=== PATIENT | female | born 1965 | race Caucasian/White ===

== ENCOUNTER 2016-03-20 03:52 | Emergency (ER) | payer OTHER ==
[~2016-03-20 03:52] MED LIST: AKWA TEARS15 ML BOTH EYES; ALBUTEROL SULF8.5 GM IH; AMOX TR-K CLV1 EAC4 PO; ASPIR-LOW81 MG PO; BACTRIM DS; CATAPRES0.1 MG PO; COREG12.5 M1 PO; CORGARD40 MG PO; CYCLOBENZAPRINE10 MG PO; Catapres PO; Corgard PO; DYNAPEN500 MG PO; ENDOCET 5-3251 EACH PO; Ecotrin PO; FLEXERIL10 MG PO; FOLIC ACID1 MG PO; Fioricet,Esgic,Repan PO; Flexeril PO; IBUPROFEN800 MG PO; K-Dur PO; LEXAPRO10 MG PO; LEXAPRO20 MG PO; LIBRIUM25 MG PO; LO-DOSE ASPIRIN81 M1 PO; Lopressor PO; MOTRIN800 MG PO; Motrin PO; NADOLOL40 MG PO; NICOTINE PATCH1 EAC2 TD; NOHOMEMEDS; PROMETHAZINE HC25 M1 PO; Percocet 5/325,Endoc PO; THERAGRAN1 TABLET PO; TORADOL10 MG PO; Tylenol/Codeine #3 PO; VITAMIN B-1100 MG PO; WELLBUTRIN75 MG PO; Wellbutrin PO; ZOFRAN ODT4 MG PO; [UNRECOGNIZED DRUG - OTHER]; muscle relaxer
== END 2016-03-20 04:24 | disposition left against medical advice (07) ==
LOC: EME → EDBD 03:52 → EME 04:24
DX: R07.9 Chest pain, unspecified (principal); I25.10 Atherosclerotic heart disease of native coronary artery without angina pectoris; I25.2 Old myocardial infarction; Z87.442 Personal history of urinary calculi; Z87.440 Personal history of urinary (tract) infections; F17.200 Nicotine dependence, unspecified, uncomplicated

== ENCOUNTER 2016-06-30 20:55 | Emergency (ER) | payer OTHER ==
[~2016-06-30] VITALS: Ht 152.4 cm; Wt 61.3 kg
[2016-07-01 00:24] VITALS: BP 117/77
== END 2016-07-01 00:31 | disposition home or self-care (01) ==
LOC: EME 20:55
PROC: 3E0234Z Introduction of Serum, Toxoid and Vaccine into Muscle, Percutaneous Approach (ICD-10-PCS; principal; 2016-06-30)
DX: S01.112A Laceration without foreign body of left eyelid and periocular area, initial encounter (principal); Y04.2XXA Assault by strike against or bumped into by another person, initial encounter; F10.129 Alcohol abuse with intoxication, unspecified; Y90.8 Blood alcohol level of 240 mg/100 ml or more; Z23 Encounter for immunization; I48.91 Unspecified atrial fibrillation; F17.200 Nicotine dependence, unspecified, uncomplicated
CPT/HCPCS: 70450; 70486; 99281; 99283; G0480